=== PATIENT | male | born 1970 | race Caucasian/White ===

== ENCOUNTER 2017-06-23 04:35 | Observation (INO) | payer MEDICARE ==
[~2017-06-23] VITALS: Ht 185.4 cm; Wt 204.1 kg
[2017-06-23] MEDS ORDERED: Lidocaine HCl 2% Jelly 5ml Tube TOPIC ONE (06:15)
[2017-06-23] MEDS ORDERED: Morphine Sulfate 4mg/ml Inj IVP ONE (06:45)
[2017-06-23 07:56] VITALS: BP 166/66
[2017-06-23 07:57] LABS: HEMATOCRIT 25.9 % (42.0-52.0); HEMOGLOBIN 8.2 G/DL (14.2-18.0); MEAN CORPUSCULAR VOLUME 90 FL (80-99); PLATELET COUNT 188 K/UL (150-450); RED BLOOD COUNT 2.87 M/UL (4.70-6.10); RED CELL DISTRIBUTION WIDTH 16.6 % (11.6-14.8); WHITE BLOOD COUNT 11.9 K/UL (4.8-10.8)
[2017-06-23 08:03] LABS: ANION GAP 7 mmol/L (5-15); BLOOD UREA NITROGEN 50 mg/dL (7-18); CALCIUM 8.5 MG/DL (8.5-10.1); CARBON DIOXIDE 31 MMOL/L (21-32); CHLORIDE 95 MMOL/L (98-107); CREATININE 6.8 MG/DL (0.55-1.30); POTASSIUM 5.3 MMOL/L (3.5-5.1); SODIUM 133 MMOL/L (136-145)
[2017-06-23 08:16] LABS: ALANINE AMINOTRANSFERASE 11 U/L (12-78); ALBUMIN 2.8 G/DL (3.4-5.0); ALBUMIN/GLOBULIN RATIO 0.6 (1.0-2.7); ALKALINE PHOSPHATASE 130 U/L (46-116); ASPARTATE AMINO TRANSFERASE 17 U/L (15-37); BILIRUBIN,TOTAL 0.6 MG/DL (0.2-1.0); CKMB < 0.5 NG/ML (0.0-3.6); CREATINE KINASE 42 U/L (26-308)
[2017-06-23] MEDS ORDERED: HYDRALAZINE HCL25 M2 PO (08:29)
[2017-06-23] MEDS ORDERED: CENTRUM SILVER1 EAC7 PO (08:29)
[2017-06-23] MEDS ORDERED: BENADRYL25 M3 PO (08:29)
[2017-06-23] MEDS ORDERED: CLONIDINE HCL0.3 MG PO (08:29)
[2017-06-23] MEDS ORDERED: TYLENOL325 MG ORAL (08:29)
[2017-06-23] MEDS ORDERED: LIPITOR80 MG ORAL (08:29)
[2017-06-23] MEDS ORDERED: COREG12.5 MG ORAL (08:29)
[2017-06-23] MEDS ORDERED: NORVASC10 MG ORAL (08:29)
[2017-06-23] MEDS ORDERED: PSYLLIUM0.4 GM PO (08:29)
[2017-06-23] MEDS ORDERED: ZOLPIDEM TARTRA10 MG ORAL (08:29)
[2017-06-23] MEDS ORDERED: NOVOLOG100 UNIT/3 SUBQ (08:29)
[2017-06-23] MEDS ORDERED: NEPHRO-VITE RX1 EAC1 PO (08:29)
--- NOTE | 2017-06-23 08:56 | Emergency Room Report ---
History of Present Illness General Chief Complaint: Fever Source: Patient, EMS (BAM DELUCA M.D.) Present Illness HPI 46-year-old male presents ED for evaluation. Patient states that starting last night he developed a fever. Temperature is 101.8. Patient was told his fever ever gets is high he should come to the ER for evaluation. Patient notes a bodyaches and chills. Denies cough. Denies chest pain or shortness of breath. Patient is a dialysis patient gets dialysis Thursday. No other aggravating relieving factors. Denies any other associated symptoms. Patient states he has a wound on his left lower chest today but is getting wound care at [facility]. Patient states the dressing was changed 2 days ago and everything looked fine (BAM DELUCA M.D.) Allergies: Coded Allergies: No Known Allergies (Unverified , 06/23/17) Patient History Past Medical History: renal disease, dialysis Past Surgical History: none Pertinent Family History: none Social History: Denies: smoking, alcohol use, drug use Immunizations: UTD Reviewed Nursing Documentation: PMH: Agreed, PSxH: Agreed (BAM DELUCA M.D.) Nursing Documentation-PMH Hx Dialysis: Yes - mwf (BAM DELUCA M.D.) Review of Systems All Other Systems: negative except mentioned in HPI (BAM DELUCA M.D.) Physical Exam Vital Signs Date Time Temp Pulse Resp B/P (MAP) Pulse Ox O2 Delivery O2 Flow Rate FiO2 06/23/17 04:33 101.8 97 20 192/79 98 Room Air Sp02 EP Interpretation: reviewed, normal General Appearance: no apparent distress, alert, GCS 15, non-toxic, obese Head: normocephalic, atraumatic Eyes: bilateral eye normal inspection, bilateral eye PERRL ENT: hearing grossly normal, normal pharynx, no angioedema, normal voice Neck: full range of motion, supple/symm/no masses Respiratory: chest non-tender, lungs clear, normal breath sounds, speaking full sentences Cardiovascular #1: regular rate, rhythm, no edema Cardiovascular #2: 2+ carotid (R), 2+ carotid (L), 2+ radial (R), 2+ radial (L) , 2+ dorsalis pedis (R), 2+ dorsalis pedis (L) Gastrointestinal: normal bowel sounds, non tender, soft, non-distended, no guarding, no rebound Rectal: deferred Genitourinary: normal inspection, no CVA tenderness Musculoskeletal: back normal, gait/station normal, normal range of motion, non- tender Neurologic: alert, oriented x3, responsive, motor strength/tone normal, sensory intact, speech normal Psychiatric: judgement/insight normal, memory normal, mood/affect normal, no suicidal/homicidal ideation Reflexes: 3+ bicep (R), 3+ bicep (L), 3+ tricep (R), 3+ tricep (L), 3+ knee (R) , 3+ knee (L) Skin: normal color, no rash, warm/dry, well hydrated Lymphatic: no adenopathy (BAM DELUCA M.D.) Medical Decision Making Diagnostic Impression: Primary Impression: Fever Qualified Codes: R50.9 - Fever, unspecified Additional Impression: ESRD (end stage renal disease) on dialysis Labs Test 06/23/17 06:30 White Blood Count 11.9 K/UL (4.8-10.8) Red Blood Count 2.87 M/UL (4.70-6.10) Hemoglobin 8.2 G/DL (14.2-18.0) Hematocrit 25.9 % (42.0-52.0) Mean Corpuscular Volume 90 FL (80-99) Mean Corpuscular Hemoglobin 28.8 PG (27.0-31.0) Mean Corpuscular Hemoglobin Concent 31.8 G/DL (32.0-36.0) Red Cell Distribution Width 16.6 % (11.6-14.8) Platelet Count 188 K/UL (150-450) Mean Platelet Volume 7.6 FL (6.5-10.1) Neutrophils (%) (Auto) % (45.0-75.0) Lymphocytes (%) (Auto) % (20.0-45.0) Monocytes (%) (Auto) % (1.0-10.0) Eosinophils (%) (Auto) % (0.0-3.0) Basophils (%) (Auto) % (0.0-2.0) Differential Total Cells Counted 100 Neutrophils % (Manual) 93 % (45-75) Lymphocytes % (Manual) 6 % (20-45) Monocytes % (Manual) 1 % (1-10) Eosinophils % (Manual) 0 % (0-3) Basophils % (Manual) 0 % (0-2) Band Neutrophils 0 % (0-8) Platelet Estimate Adequate Platelet Morphology Normal Hypochromasia 1+ Anisocytosis 1+ Sodium Level 133 MMOL/L (136-145) Potassium Level 5.3 MMOL/L (3.5-5.1) Chloride Level 95 MMOL/L (98-107) Carbon Dioxide Level 31 MMOL/L (21-32) Anion Gap 7 mmol/L (5-15) Blood Urea Nitrogen 50 mg/dL (7-18) Creatinine 6.8 MG/DL (0.55-1.30) Estimat Glomerular Filtration Rate 8.7 mL/min (>60) Glucose Level 314 MG/DL (74-106) Lactic Acid Level 1.20 mmol/L (0.66-2.22) Calcium Level 8.5 MG/DL (8.5-10.1) Total Bilirubin 0.6 MG/DL (0.2-1.0) Aspartate Amino Transf (AST/SGOT) 17 U/L (15-37) Alanine Aminotransferase (ALT/SGPT) 11 U/L (12-78) Alkaline Phosphatase 130 U/L (46-116) Total Creatine Kinase 42 U/L (26-308) Creatine Kinase MB < 0.5 NG/ML (0.0-3.6) Creatine Kinase MB Relative Index Troponin I 0.011 ng/mL (0.000-0.056) Total Protein 7.7 G/DL (6.4-8.2) Albumin 2.8 G/DL (3.4-5.0) Globulin 4.9 g/dL Albumin/Globulin Ratio 0.6 (1.0-2.7) (BAM DELUCA M.D.) ER Course I received signout from Dr. Deluca 46-year-old male with end-stage renal disease, with fever Febrile 101.8 No source found, mildly elevated white count I spoke to patient's national insurance officer, states that he has had fevers in the last 5 weeks, he has been hospitalized to [facility], has had negative blood cultures, Endorsed to Dr. Bartlett (Chary Baez M.D.) EKG Diagnostic Results Rate: normal Rhythm: NSR ST Segments: no acute changes ASA given to the pt in ED: No (BAM DELUCA M.D.) Rhythm Strip Diag. Results EP Interpretation: yes Rhythm: NSR, no PVC's, no ectopy (BAM DELUCA M.D.) Chest X-Ray Diagnostic Results Chest X-Ray Diagnostic Results : Chest X-Ray Ordered: Yes # of Views/Limited/Complete: 1 View Indication: Other - fever EP Interpretation: Yes Interpretation: no pneumothorax, no acute cardiopulmonary disease, other - pulmonary congestion Impression: Other - chf Electronically Signed by: Electronically signed by Bam Deluca MD (BAM DELUCA M.D.) Last Vital Signs Date Time Temp Pulse Resp B/P (MAP) Pulse Ox O2 Delivery O2 Flow Rate FiO2 06/23/17 07:56 101.8 77 22 166/66 95 Room Air Status: improved (BAM DELUCA M.D.) Disposition: ADMITTED INPATIENT Condition: Serious Referrals: NOT CHOSEN KIRK/,REFERRING (PCP) BAM DELUCA M.D. Jun 23, 2017 08:56 Chary Baez M.D. Jun 23, 2017 10:19
[2017-06-23 09:29] VITALS: BP 179/73
[2017-06-23] MEDS ORDERED: Vancomycin 1.5gm/D5W 250ml 250 ML IVPB ONE ×2 (10:30→10:45)
[2017-06-23] MEDS ORDERED: NOVOLOG100 UNITS1 (10:35)
[2017-06-23] MEDS ORDERED: HydrALAZINE 25mg tab ORAL PRN (10:45)
[2017-06-23 11:23] VITALS: BP 173/74
[2017-06-23] MEDS ORDERED: Heparin Sod 1000 units/ml 10ml IV PRN (11:30)
[2017-06-23] MEDS: NovoLOG Insulin Flexpen SUBQ SCH ×3 (11:30→21:00)
[2017-06-23] MEDS ORDERED: Cefepime HCl 1 GM in D5W 55 ML IVPB ONE ×2 (11:30→14:00)
--- NOTE | 2017-06-23 11:52 | Diagnostic Imaging Report ---
Indication: Dyspnea Technique: XRAY Chest 1v Comparison: None Findings: Heart is enlarged. Mediastinal contours are sharp. There is moderate interstitial edema/opacification bilaterally. There is no large pleural effusion. No definite pneumothorax. No acute osseous abnormality identified. Impression: Cardiomegaly with moderate interstitial opacification. This may be related to edema/fluid overload. The possibility of interstitial pneumonia is not entirely excluded. Clinical correlation and follow-up exam recommended.
[2017-06-23] MEDS: Nystatin Powder 100,000 units/gm 15gm TOPIC SCH ×2 (13:00→18:00)
[2017-06-23] MEDS: HYDROcodone/Acetamin 10/325 tab ORAL PRN ×2 (15:46→20:06)
[2017-06-23 16:00] VITALS: BP 182/77
--- NOTE | 2017-06-23 17:45 | History and Physical Report ---
DATE OF ADMISSION: 06/23/2017 CHIEF COMPLAINT/REASON FOR HOSPITALIZATION: The patient is admitted for fever and chills. He is a 46-year-old male. HISTORY OF PRESENT ILLNESS: The patient has been on dialysis for about three years with a large right arm AV fistula. He has had recurrent wound problems on the left leg and has had hospitalization at [facility] one to two months ago and has received a course of vancomycin, last dose was about four days ago. Today, he presented with fever and chills. He has had on and off drainage from the wounds on the left leg and has wound care ongoing. He has a right [id number]-[id number] amputation. There is a history of hypertension, hyperlipidemia, and insulin-dependent diabetes for many years. PAST SURGICAL HISTORY: Nine surgeries on the right leg with eventual right lbdsq-wqx-dtag amputation, AV fistula right arm. He has had laser surgery to the eyes for diabetic retinopathy. HOME MEDICATIONS: Recorded in the computer include Tylenol, amlodipine, Lipitor, carvedilol, clonidine, Benadryl, hydralazine, insulin, multivitamin, psyllium, vitamin B complex, and zolpidem. ALLERGIES: To gabapentin and a muscle relaxant. HABITS: He smoked and quit about 10 years ago. He is a young adult. He used some alcohol and ecstasy. SYSTEM REVIEW: HEENT: There is some decreased visual acuity secondary to diabetes. Hearing is good. ENDOCRINE: History of obesity and diabetes. PULMONARY: No asthma, TB, or chronic cough. CARDIAC: He has history of perhaps a heart murmur and some ectopic beats. Mild fluid overload in the past. He states he gains 4 to 5 kilos between dialysis treatments. GASTROINTESTINAL: No ulcers or GI bleeding. GENITOURINARY: He makes small amounts of urine. NEUROLOGIC: History of CVA with minimal residual. He had some left arm weakness that resolved, this was about 10 years ago. MUSCULOSKELETAL: History of obesity, BKA, and difficulty walking. He can walk few steps or transfer with his below knee amputation. PHYSICAL EXAMINATION: GENERAL: The patient is alert, oriented, morbidly obese male. He has BMI of 59.4. VITAL SIGNS: As follows temperature 101.8 degrees, now 100.1 degrees, pulse 70, respirations 25, blood pressure 179/73, and oxygen saturation 99% on two liters. HEENT: Sclerae nonicteric. Ocular motions intact in all directions. Oral mucosa moist. NECK: No adenopathy or thyroid enlargement. LUNGS: Clear. HEART: Regular rhythm. I hear no murmur. No ectopic beats. ABDOMEN: Obese and soft. No organomegaly or masses. EXTREMITIES: No edema. There is a right yojrs-lfx-flup amputation with a clean stump. The left leg has a large dressing over the wound and this will be checked again later. SKIN: There is some fungal dermatitis in the fat pads in the lower abdomen bilaterally. NEUROLOGIC: He is alert and oriented. Cranial nerves are intact. No focal weakness. PERTINENT LABORATORY DATA: Show white count of 11.9, hemoglobin 8.2. Potassium of 5.3, BUN 50, creatinine 6.8, and glucose 314. IMPRESSION: Fever and chills, infection likely due to this is due to cellulitis or abscess in the left leg, less likely dialysis access infection, pulmonary or GI disorders. PLAN: The patient will be cultured. Given broad-spectrum antibiotics. We will observe his response. Try to get wound care and make a disposition after observing his response to the initiation of antibiotics and treatment of potential sepsis. Zak Bartlett M.D. DR: Leopoldo JOB#: [id number] CC:
[2017-06-23] MEDS: cloNIDine 0.2mg Tab ORAL SCH (18:00)
[2017-06-23 20:52] VITALS: BP 175/88
[2017-06-23] MEDS ORDERED: Miralax 17gm pkt ORAL PRN (21:00)
[2017-06-23] MEDS: Levemir Flexpen SUBQ SCH (21:00)
[2017-06-23] MEDS: Atorvastatin 80mg tab ORAL SCH (21:00)
[2017-06-23] MEDS: Heparin 5000 units/ml inj SUBQ SCH (21:00)
[2017-06-23] MEDS ORDERED: Levofloxacin 500mg tab ORAL SCH (21:00)
[2017-06-23] MEDS: Carvedilol 12.5mg tab ORAL SCH (21:00)
[2017-06-23] MEDS ORDERED: Zolpidem 5mg tab ORAL PRN (21:00)
[2017-06-24 00:08] VITALS: BP 157/77
[2017-06-24] MEDS: HYDROcodone/Acetamin 10/325 tab ORAL PRN ×2 (04:28→11:38)
[2017-06-24 04:55] VITALS: BP 159/91
[2017-06-24] MEDS: cloNIDine 0.2mg Tab ORAL SCH ×2 (05:11→17:25)
[2017-06-24] MEDS: NovoLOG Insulin Flexpen SUBQ SCH ×4 (05:49→20:16)
[2017-06-24 08:00] VITALS: BP 156/87
[2017-06-24] MEDS: Nystatin Powder 100,000 units/gm 15gm TOPIC SCH ×3 (09:00→17:26)
[2017-06-24] MEDS: Heparin 5000 units/ml inj SUBQ SCH ×2 (09:00→20:19)
[2017-06-24] MEDS: Carvedilol 12.5mg tab ORAL SCH ×2 (09:55→20:09)
[2017-06-24] MEDS: Levemir Flexpen SUBQ SCH ×2 (09:57→20:15)
--- NOTE | 2017-06-24 11:07 | Wound Nurse Progress Note ---
Wound RN Progress Note Wound Consult followed up with consult order. per patient is being discharged today, does not want consult at this time, per patient he has his own wound care team per patient he will follow up and has appointment with outside wound care team. JANET GIRON Jun 24, 2017 11:07
[2017-06-24 12:00] VITALS: BP 166/81
[2017-06-24] MEDS ORDERED: Tums 500mg ORAL ONE ×2 (12:45→13:15)
[2017-06-24 15:50] LABS: APPEARANCE,URINE CLEAR; BILIRUBIN, URINE NEGATIVE (NEGATIVE); GLUCOSE, URINE (UA) 3+ (NEGATIVE); KETONES,URINE NEGATIVE (NEGATIVE); LEUKOCYTE ESTERASE ,URINE NEGATIVE (NEGATIVE); NITRITE,URINE NEGATIVE (NEGATIVE); PH,URINE 8 (4.5-8.0); PROTEIN,URINE 4+ (NEGATIVE); UROBILINOGEN,URINE NORMAL MG/DL (0.0-1.0)
[2017-06-24 15:51] LABS: COLOR,URINE YELLOW
[2017-06-24 16:00] VITALS: BP 168/80
--- NOTE | 2017-06-24 16:19 | Cardiology Report ---
APPROVED REPORT EKG Measurement Heart [id number] Sinus rhythm with sinus arrhythmia with 1st degree AV block Otherwise normal ECG
--- NOTE | 2017-06-24 17:15 | Discharge Summary ---
DATE OF ADMISSION: 06/23/2017 DATE OF DISCHARGE: 06/24/2017 PERTINENT HISTORY: The is a 46-year-old man with end-stage renal disease, on dialysis and chronic leg ulcers of the left leg and a right BKA who presented with fever and chills. He has had prior courses of antibiotics for infection in the leg. He also had evidence of CHF on chest x-ray and mild hyperkalemia. PERTINENT PHYSICAL FINDINGS: VITAL SIGNS: Temperature 101.8 degrees on arrival. LUNGS: Clear. HEART: Regular rhythm. ABDOMEN: Obese and soft. No organomegaly. EXTREMITIES: No edema. There is right below-knee amputation. The left leg has a large dressing. Later after the initial visit, he had several large ulcers draining edema fluid from the ulcers in the left leg. COURSE IN THE HOSPITAL: The patient had fever and chills. He is pain cultured. Results of cultures are pending at time this dictation. He received empiric antibiotics with linezolid and levofloxacin, as he had no intravenous access. He subsequently had stable dialysis with fluid removal and felt better. There were no further fever or chills. The patient on the day of discharge was alert and oriented. No acute distress. Lungs, clear. Heart, regular rhythm. Abdomen, soft without organomegaly. He had a clean dressing on his leg and he was discharged home in stable condition. Plan is to follow up with his private supervisory geographer Dr. Ruddy Machuca at [facility] and his wound care doctor, Dr. Jackson at [facility] and antibiotics will be given on dialysis as per Dr. Machuca, who was called. FINAL DIAGNOSES: 1. Fever and chills, likely due to cellulitis and abscess left leg. 2. Chronic wound left leg with ulceration abscess, cellulitis. 3. End-stage renal disease. 4. Congestive heart failure, acute on chronic with diastolic dysfunction. 5. Hyperkalemia. 6. Insulin-dependent diabetes. 7. Morbid obesity. 8. Anemia of chronic kidney disease. PLAN: Discharge home on a renal diabetic diet and medications per the discharge medication list. Follow up with his physicians as above. Zak Bartlett M.D. DR: SISI JOB#: [id number] CC:
[2017-06-24] MEDS: Atorvastatin 80mg tab ORAL SCH (20:09)
[2017-06-24 20:35] VITALS: BP 168/79
== END 2017-06-25 00:32 | disposition home or self-care (01) ==
LOC: EDBD 04:35 → EMR 05:30 → 3E 09:16 → EDBEDREQSVC 10:40 → EDBEDREQ 11:21
DX: L03.116 Cellulitis of left lower limb (principal); L97.929 Non-pressure chronic ulcer of unspecified part of left lower leg with unspecified severity; I13.2 Hypertensive heart and chronic kidney disease with heart failure and with stage 5 chronic kidney disease, or end stage renal disease; E11.22 Type 2 diabetes mellitus with diabetic chronic kidney disease; N18.6 End stage renal disease; I50.33 Acute on chronic diastolic (congestive) heart failure; E87.5 Hyperkalemia; E66.01 Morbid (severe) obesity due to excess calories; Z68.43 Body mass index [BMI] 50.0-59.9, adult; D63.1 Anemia in chronic kidney disease; Z89.511 Acquired absence of right leg below knee; Z99.2 Dependence on renal dialysis; Z79.4 Long term (current) use of insulin
CPT/HCPCS: 36415; 71045; 80053; 81003; 82550; 82553; 82962 ×2; 83605; 84484; 85007; 85025; 86710; 87040; 87070; 87181; 87205; 93005; 96374; 99285; G0378 ×2; J1644; J1815 ×2; J2270; S5561; 86705; 86709; 86803; 87340